=== PATIENT | female | born 1955 | race Two or more races ===

== ENCOUNTER 2020-08-04 05:36 | Day surgery (SDC) | payer OTHER ==
[~2020-08-04 05:36] MED LIST: ATORVASTATIN CA20 MG PO; COZAAR100 MG PO; ZIAC 2.5-6.251 EACH PO
[2020-08-04] MEDS ORDERED: MORGIDOX100 MG PO (08:17)
[2020-08-04] MEDS ORDERED: NAPR500T14 PO (08:17)
== END 2020-08-04 15:35 | disposition home or self-care (01) ==
LOC: CIR.AMB 05:36
PROVIDERS: ATTEND Obstetrics & Gynecology
DX: D25.0 Submucous leiomyoma of uterus (principal); N84.0 Polyp of corpus uteri; Z20.822 Contact with and (suspected) exposure to COVID-19